=== PATIENT | male | born 1955 | race Caucasian/White ===

== ENCOUNTER → 2017-02-27 | Outpatient (CLI) | payer OTHER ==
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
== END ==
LOC: RADMRIMAIN 10:18 → MERGE 10:45
PROVIDERS: ATTEND Family Medicine
DX: Z09 Encounter for follow-up examination after completed treatment for conditions other than malignant neoplasm (principal); Z86.69 Personal history of other diseases of the nervous system and sense organs; R90.89 Other abnormal findings on diagnostic imaging of central nervous system
CPT/HCPCS: 70551

== ENCOUNTER → 2018-06-09 | Outpatient (CLI) | payer BC ==
[2018-06-09 12:20] LABS: Glucose 2 Hour 67 mg/dL
[2018-06-09 15:17] LABS: Protein, Total 6.3 g/dL (6.2-8.2)
[2018-06-09 15:18] LABS: Magnesium 2.3 mg/dL (1.5-2.4); Potassium 4.9 mmol/L (3.5-5.5)
[2018-06-09 15:25] LABS: T3, Uptake 33 % (23-37)
[2018-06-09 15:26] LABS: T4, Free (Free Thyroxine) 1.1 ng/dL (0.80-1.80)
[2018-06-09 16:41] LABS: Hemoglobin A1C 5.3 % (4.0-6.0)
[2018-06-10 11:30] LABS: Albumin 3.81 g/dL (3.80-4.90); Gamma Globulin 0.76 g/dL (0.70-1.50)
== END ==
LOC: LABWHC1 08:31
PROVIDERS: ATTEND Physical Medicine & Rehabilitation
DX: G60.3 Idiopathic progressive neuropathy (principal)
CPT/HCPCS: 36415; 82043; 82550; 82565; 82570; 82607; 82947; 82950; 83036; 83615; 83735; 84075; 84132; 84165; 84439; 84443; 84450; 84479; 84520; 85652; 86038